=== PATIENT | female | born 1950 | race Caucasian/White ===

== ENCOUNTER 2019-02-22 14:54 | Emergency (ER) | payer OTHER ==
[~2019-02-22] VITALS: Ht 144.8 cm; Wt 50.9 kg
[2019-02-22] MEDS ORDERED: LISI-662 PO (15:13)
[2019-02-22] MEDS ORDERED: ASPI81 PO (15:13)
[2019-02-22 16:36] VITALS: BP 143/98
== END 2019-02-22 17:14 | disposition home or self-care (01) ==
LOC: EMS 14:54
DX: R04.0 Epistaxis (principal); I10 Essential (primary) hypertension
CPT/HCPCS: 93005